=== PATIENT | male | born 1935 | race Caucasian/White ===

== ENCOUNTER → 2022-11-29 | Outpatient (CLI) | payer MEDICARE, BC ==
--- NOTE | 2022-11-29 14:51 | CT ---
EXAMINATION TYPE: CT abdomen pelvis wo con DATE OF EXAM: 11/29/2022 COMPARISON: None HISTORY: UTI CT DLP: [id number] mGycm Automated exposure control for dose reduction was used. TECHNIQUE: Helical acquisition of images was performed from the lung bases through the pelvis. FINDINGS: There is mild fine reticular interstitial density in the right lung base and moderate reticular abnor mal interstitial density left lung base with bronchiectasis. Findings are consistent with chronic int erstitial lung disease. There is cholelithiasis but no gallbladder distention distention, wall thickening or pericholecystic fluid. The solid visceral organs of the upper abdomen are unremarkable without organomegaly. There are no renal calculi or hydronephrosis. Caliber the abdominal aorta is normal is no aneurysm. The bowel loops are normal in caliber dilatation or obstruction. There is no free intraperitoneal air or fluid. There are multiple small urinary bladder diverticulum of the anterior superior aspect urinary bladder . There is mild hazy density in the pericystic fat suggest the presence of cystitis.. Prostate gland contains a focal calcification but is not enlarged. There is no pelvic adenopathy or f ree fluid. There are marked degenerative changes the lumbar spine. No focal osseous abnormalities are seen. IMPRESSION: 1. Findings consistent with chronic interstitial lung disease. 2. Cholelithiasis. 3. Multiple small urinary bladder diverticulum with a suggestion of mild inflammatory changes reason left question of cystitis. 4. No renal calcifications or hydronephrosis.
== END | disposition home or self-care (01) ==
LOC: RADCTMAIN 12:14
PROVIDERS: ATTEND Urology
DX: K80.20 Calculus of gallbladder without cholecystitis without obstruction (principal); N39.9 Disorder of urinary system, unspecified; N32.3 Diverticulum of bladder
CPT/HCPCS: 74176